=== PATIENT | female | born 1945 | race Caucasian/White ===

== ENCOUNTER 2017-01-22 17:47 | Inpatient (IN) | payer MEDICARE, OTHER ==
[~2017-01-22] VITALS: Ht 175.3 cm; Wt 73.5 kg
[~2017-01-22 17:47] MED LIST: ACET-2116 PO; AMLO-511 PO; ARIP400S IM; ASPI-556 PO; AUD NEB; B CO1CAP4 PO; BISA10SU23 PR; DIVA500T52 PO; DSSL PO; HALO5TAB23 PO; LEVO25TA4 PO; LORA2TAB80 PO; PANT20TA PO; PRAV40 PO; SEVE800PW PO; VITAD1000 PO
[2017-01-22 18:19] LABS: BASOPHILS % (AUTO) 0.6 % (0.0-2.0); EOSINOPHILS % (AUTO) 1.4 % (1.0-6.0); HEMATOCRIT 25.6 % (36-46); HEMOGLOBIN 8.5 g/dL (12.0-16.0); LYMPHOCYTES # (AUTO) 0.6 K/uL (1.0-4.8); LYMPHOCYTES % (AUTO) 6.8 % (22.0-44.0); MEAN CORPUSCULAR HEMOGLOBIN 33.1 pg (26.0-34.0); MEAN CORPUSCULAR HGB CONC 33.2 G/dL (31.0-37.0); MEAN CORPUSCULAR VOLUME 100 fL (80-100); MONOCYTES # (AUTO) 0.6 K/uL (0.1-1.0); MONOCYTES % (AUTO) 6.5 % (2.0-9.0); NEUTROPHILS # (AUTO) 8.1 K/uL (1.8-7.7); NEUTROPHILS % (AUTO) 84.7 % (40.0-70.0); PLATELET COUNT (AUTO) 206 K/uL (150-450); RED BLOOD CELL COUNT(AUTO) 2.57 MIL/uL (4.00-5.20); RED CELL DISTRIBUTION WIDTH 16.6 % (11.5-14.5); WHITE BLOOD COUNT (AUTO) 9.5 K/uL (4.5-11.0)
[2017-01-22] MEDS ORDERED: FERS325 PO (18:21)
[2017-01-22] MEDS ORDERED: CINA30 PO (18:21)
[2017-01-22] MEDS ORDERED: INSU100V SQ (18:21)
[2017-01-22] MEDS ORDERED: QUET300T2 PO (18:21)
[2017-01-22] MEDS ORDERED: METO25 PO (18:21)
[2017-01-22] MEDS ORDERED: FAMO20 PO (18:21)
[2017-01-22] MEDS ORDERED: MIRT30 PO (18:21)
[2017-01-22 18:30] LABS: ANION GAP 17 mmol/L (8-16); CALCIUM, TOTAL 9.8 mg/dL (8.8-10.5); CARBON DIOXIDE 24 mmol/L (22-29); CHLORIDE 96 mmol/L (98-107); CREATININE 8.34 mg/dL (0.60-1.30); GLOMERULAR FILTR. RATE CALC 5 mL/min (>60); POTASSIUM 3.9 mmol/L (3.5-5.1); SODIUM SERUM 137 mmol/L (136-145); UREA NITROGEN, BLOOD 92 mg/dL (7-18)
[2017-01-22 18:47] LABS: GLUCOSE,POINT OF CARE 160 MG/DL (70-110)
[2017-01-22 18:50] LABS: ALANINE AMINOTRANSFERASE 12 U/L (12-78); ALBUMIN 3.1 g/dL (3.4-5.0); ASPARTATE AMINOTRANSFERASE 13 U/L (15-37); BILIRUBIN,TOTAL 0.4 mg/dL (0.1-1.0); THYROID STIMULATING HORMONE 1.05 uIU/mL (0.36-3.74); TOTAL PROTEIN, SERUM 6.9 g/dL (6.4-8.2)
[2017-01-22 19:02] LABS: VALPROIC ACID < 3 mcg/mL (50-100)
[2017-01-22] MEDS ORDERED: LORazepam 2 MG TABLET PO PRN (20:15)
[2017-01-22] MEDS ORDERED: ACETAMINOPHEN 325 MG TABLET PO PRN (20:15)
[2017-01-22] MEDS ORDERED: OxyCODONE HCL/ACETAMINOPHEN 5-325 MG TABLET PO PRN (20:15)
[2017-01-22] MEDS ORDERED: ZOLPIDEM TARTRATE 5 MG TABLET PO PRN (20:15)
[2017-01-22] MEDS ORDERED: DEXTROSE 50%-WATER 25 GM/50 ML SYRINGE IVP PRN (20:15)
[2017-01-22] MEDS ORDERED: ALBUTEROL SULFATE 2.5 MG/0.5 ML NEB SOLUTION NEB PRN (20:15)
[2017-01-22] MEDS ORDERED: PANT40TA25 PO (20:24)
[2017-01-22] MEDS: MIRTAZAPINE 30 MG TABLET PO SCH (21:00)
[2017-01-22] MEDS: QUEtiapine FUMARATE 300 MG TABLET PO SCH (21:00)
[2017-01-22] MEDS: METOPROLOL TARTRATE 25 MG TABLET PO SCH (21:00)
[2017-01-22] MEDS ORDERED: HALOPERIDOL 5 MG TABLET PO ONE (21:00)
[2017-01-22] MEDS ORDERED: LORazepam 2 MG TABLET PO ONE (21:00)
[2017-01-22 22:10] VITALS: BP 126/69
[2017-01-22] MEDS: HEPARIN SODIUM,PORCINE 5,000 UNITS/ML VIAL SQ SCH (23:41)
[2017-01-23 00:42] LABS: GLUCOSE,POINT OF CARE 196 MG/DL (70-110)
[2017-01-23 03:26] VITALS: BP 116/60
[2017-01-23 06:06] LABS: BASOPHILS % (AUTO) 0.3 % (0.0-2.0); EOSINOPHILS % (AUTO) 2.7 % (1.0-6.0); HEMOGLOBIN 7.7 g/dL (12.0-16.0); LYMPHOCYTES # (AUTO) 0.8 K/uL (1.0-4.8); LYMPHOCYTES % (AUTO) 10.2 % (22.0-44.0); MEAN CORPUSCULAR HEMOGLOBIN 33.5 pg (26.0-34.0); MEAN CORPUSCULAR HGB CONC 33.5 G/dL (31.0-37.0); MEAN CORPUSCULAR VOLUME 100 fL (80-100); MONOCYTES # (AUTO) 0.6 K/uL (0.1-1.0); NEUTROPHILS # (AUTO) 6.1 K/uL (1.8-7.7); NEUTROPHILS % (AUTO) 78.8 % (40.0-70.0); PLATELET COUNT (AUTO) 171 K/uL (150-450); RED CELL DISTRIBUTION WIDTH 16.1 % (11.5-14.5); WHITE BLOOD COUNT (AUTO) 7.8 K/uL (4.5-11.0)
[2017-01-23] MEDS: LEVOTHYROXINE SODIUM 25 MCG TABLET PO SCH (06:47)
[2017-01-23 06:53] LABS: HEMOGLOBIN A1C 5.2 % (4.5-6.2)
[2017-01-23 06:56] LABS: GLUCOSE,POINT OF CARE 175 MG/DL (70-110)
[2017-01-23 07:20] LABS: ALBUMIN 2.9 g/dL (3.4-5.0); BILIRUBIN,TOTAL 0.4 mg/dL (0.1-1.0); CALCIUM, TOTAL 10.1 mg/dL (8.8-10.5); CHOL/HDL RATIO 3.1 (3.9-5.7); CREATININE 8.56 mg/dL (0.60-1.30); POTASSIUM 3.9 mmol/L (3.5-5.1); THYROID STIMULATING HORMONE 1.02 uIU/mL (0.36-3.74); TOTAL PROTEIN, SERUM 6.4 g/dL (6.4-8.2)
[2017-01-23] MEDS: CINACALCET HCL 30 MG TABLET PO SCH ×2 (08:00→14:55)
[2017-01-23] MEDS ORDERED: SEVELAMER CARBONATE 800 MG POWDER PACKET PO SCH (08:00)
[2017-01-23] MEDS: FERROUS SULFATE 325 MG EC TABLET PO SCH (08:00)
[2017-01-23 08:07] LABS: VITAMIN B12 LEVEL 506 pg/mL (211-911)
[2017-01-23] MEDS: QUEtiapine FUMARATE 300 MG TABLET PO SCH ×2 (09:00→21:00)
[2017-01-23] MEDS: AmLODIPine BESYLATE 5 MG TABLET PO SCH (09:00)
[2017-01-23] MEDS: PRAVASTATIN SODIUM 40 MG TABLET PO SCH (09:00)
[2017-01-23] MEDS: PANTOPRAZOLE SODIUM 40 MG DR TABLET PO SCH (09:00)
[2017-01-23] MEDS: METOPROLOL TARTRATE 25 MG TABLET PO SCH ×3 (09:00→21:00)
[2017-01-23] MEDS: ASPIRIN 81 MG EC TABLET PO SCH (09:00)
[2017-01-23] MEDS: HEPARIN SODIUM,PORCINE 5,000 UNITS/ML VIAL SQ SCH ×2 (09:18→16:00)
[2017-01-23 10:26] VITALS: BP 121/66
[2017-01-23 12:00] VITALS: BP 108/60
[2017-01-23] MEDS ORDERED: ALBUMIN HUMAN 25%-12.5GM/50ML IV BOTTLE IV ONE (12:00)
[2017-01-23 12:13] LABS: GLUCOSE,POINT OF CARE 167 MG/DL (70-110)
[2017-01-23] MEDS: INSULIN ASPART 100 UNITS/ML SQ PRN (12:31)
[2017-01-23] MEDS ORDERED: SEVELAMER CARBONATE 800 MG TABLET PO SCH (12:35)
[2017-01-23] MEDS: SEVELAMER CARBONATE 800 MG TABLET PO SCH ×2 (12:38→17:53)
[2017-01-23] MEDS ORDERED: EPOETIN ALFA 10,000 UNITS/ML VIAL SQ ONE (13:00)
[2017-01-23] MEDS ORDERED: SODIUM CHLORIDE 0.9% 1,000 ML IV ONE ×2 (15:51)
[2017-01-23 15:56] VITALS: BP 111/65
[2017-01-23 17:42] LABS: GLUCOSE,POINT OF CARE 168 MG/DL (70-110)
[2017-01-23 20:30] VITALS: BP 99/59
[2017-01-23] MEDS: MIRTAZAPINE 30 MG TABLET PO SCH (21:00)
[2017-01-23] MEDS: LORazepam 2 MG/ML VIAL IVP PRN (23:00)
[2017-01-24] MEDS: HEPARIN SODIUM,PORCINE 5,000 UNITS/ML VIAL SQ SCH ×3 (01:15→17:59)
[2017-01-24] MEDS: LORazepam 2 MG/ML VIAL IVP PRN ×3 (03:03→17:54)
[2017-01-24 04:16] VITALS: BP 102/61
[2017-01-24] MEDS ORDERED: MANNITOL 25%-12.5 GM/50 ML VIAL IVP PRN (06:15)
[2017-01-24] MEDS ORDERED: ALBUMIN HUMAN 25%-12.5GM/50ML IV BOTTLE IV PRN (06:15)
[2017-01-24] MEDS ORDERED: SODIUM CHLORIDE 0.9% 1,000 ML IV ONE ×2 (06:19)
[2017-01-24] MEDS: LEVOTHYROXINE SODIUM 25 MCG TABLET PO SCH (06:30)
[2017-01-24 06:37] LABS: GLUCOSE,POINT OF CARE 115 MG/DL (70-110)
[2017-01-24 07:22] VITALS: BP 96/57
[2017-01-24] MEDS: ASPIRIN 81 MG EC TABLET PO SCH (09:08)
[2017-01-24] MEDS: AmLODIPine BESYLATE 5 MG TABLET PO SCH (09:09)
[2017-01-24] MEDS: PANTOPRAZOLE SODIUM 40 MG DR TABLET PO SCH (09:09)
[2017-01-24] MEDS: SEVELAMER CARBONATE 800 MG TABLET PO SCH ×3 (09:09→18:35)
[2017-01-24] MEDS: QUEtiapine FUMARATE 300 MG TABLET PO SCH ×2 (09:10→21:00)
[2017-01-24] MEDS: PRAVASTATIN SODIUM 40 MG TABLET PO SCH (09:10)
[2017-01-24] MEDS: FERROUS SULFATE 325 MG EC TABLET PO SCH (09:10)
[2017-01-24] MEDS: METOPROLOL TARTRATE 25 MG TABLET PO SCH ×3 (09:10→21:00)
[2017-01-24] MEDS: CINACALCET HCL 30 MG TABLET PO SCH (09:12)
[2017-01-24 11:00] VITALS: BP 100/60
[2017-01-24] MEDS ORDERED: HALOPERIDOL LACTATE 5 MG/ML VIAL IM PRN (15:00)
[2017-01-24 16:11] VITALS: BP 131/79
[2017-01-24 17:21] LABS: GLUCOSE,POINT OF CARE 112 MG/DL (70-110)
[2017-01-24] MEDS: MIRTAZAPINE 30 MG TABLET PO SCH (21:00)
[2017-01-24 22:10] VITALS: BP 111/65
[2017-01-25 04:57] VITALS: BP 116/61
[2017-01-25] MEDS: LEVOTHYROXINE SODIUM 25 MCG TABLET PO SCH (05:53)
[2017-01-25] MEDS: INSULIN ASPART 100 UNITS/ML SQ PRN (05:54)
[2017-01-25 05:57] LABS: GLUCOSE COMMENT 1 Received Meds; GLUCOSE,POINT OF CARE 197 MG/DL (70-110)
[2017-01-25 06:19] LABS: BASOPHILS % (AUTO) 0.6 % (0.0-2.0); EOSINOPHILS % (AUTO) 3.8 % (1.0-6.0); HEMATOCRIT 24.5 % (36-46); HEMOGLOBIN 8.3 g/dL (12.0-16.0); LYMPHOCYTES # (AUTO) 0.9 K/uL (1.0-4.8); LYMPHOCYTES % (AUTO) 10.5 % (22.0-44.0); MEAN CORPUSCULAR HEMOGLOBIN 33.7 pg (26.0-34.0); MEAN CORPUSCULAR HGB CONC 33.9 G/dL (31.0-37.0); MEAN CORPUSCULAR VOLUME 100 fL (80-100); MONOCYTES # (AUTO) 0.8 K/uL (0.1-1.0); MONOCYTES % (AUTO) 9.4 % (2.0-9.0); NEUTROPHILS # (AUTO) 6.3 K/uL (1.8-7.7); NEUTROPHILS % (AUTO) 75.7 % (40.0-70.0); PLATELET COUNT (AUTO) 173 K/uL (150-450); RED BLOOD CELL COUNT(AUTO) 2.46 MIL/uL (4.00-5.20); RED CELL DISTRIBUTION WIDTH 15.7 % (11.5-14.5); WHITE BLOOD COUNT (AUTO) 8.3 K/uL (4.5-11.0)
[2017-01-25 07:10] VITALS: BP 121/68
[2017-01-25 07:12] LABS: ALBUMIN 3.3 g/dL (3.4-5.0); BILIRUBIN,TOTAL 0.4 mg/dL (0.1-1.0); CREATININE 3.69 mg/dL (0.60-1.30); POTASSIUM 3.9 mmol/L (3.5-5.1); TOTAL PROTEIN, SERUM 6.9 g/dL (6.4-8.2)
[2017-01-25] MEDS: FERROUS SULFATE 325 MG EC TABLET PO SCH (08:34)
[2017-01-25] MEDS: SEVELAMER CARBONATE 800 MG TABLET PO SCH ×2 (08:34→16:01)
[2017-01-25] MEDS: PANTOPRAZOLE SODIUM 40 MG DR TABLET PO SCH (08:35)
[2017-01-25] MEDS: PRAVASTATIN SODIUM 40 MG TABLET PO SCH (08:35)
[2017-01-25] MEDS: QUEtiapine FUMARATE 300 MG TABLET PO SCH (08:35)
[2017-01-25] MEDS: AmLODIPine BESYLATE 5 MG TABLET PO SCH (08:35)
[2017-01-25] MEDS: ASPIRIN 81 MG EC TABLET PO SCH (08:35)
[2017-01-25] MEDS: HEPARIN SODIUM,PORCINE 5,000 UNITS/ML VIAL SQ SCH ×3 (08:36→16:01)
[2017-01-25] MEDS: METOPROLOL TARTRATE 25 MG TABLET PO SCH ×2 (08:36→16:01)
[2017-01-25 11:13] VITALS: BP 141/76
[2017-01-25 12:32] LABS: GLUCOSE,POINT OF CARE 126 MG/DL (70-110)
[2017-01-25 15:06] VITALS: BP 119/59
[2017-01-25] MEDS ORDERED: MANNITOL 25%-12.5 GM/50 ML VIAL IVP ONE (16:59)
[2017-01-25] MEDS ORDERED: ALBUMIN HUMAN 25%-12.5GM/50ML IV BOTTLE IV ONE (16:59)
== END 2017-01-25 17:00 | DRG 885 ==
LOC: EMS 17:50 → 6N 19:30
PROVIDERS: ADMIT Hospitalist; ATTEND Hospitalist
PROC: 5A1D60Z (ICD-10-PCS; principal; 2017-01-23)
DX: F20.9 Schizophrenia, unspecified (principal); N18.6 End stage renal disease; E44.1 Mild protein-calorie malnutrition; I12.0 Hypertensive chronic kidney disease with stage 5 chronic kidney disease or end stage renal disease; F25.0 Schizoaffective disorder, bipolar type; F03.90 Unspecified dementia, unspecified severity, without behavioral disturbance, psychotic disturbance, mood disturbance, and anxiety; F17.210 Nicotine dependence, cigarettes, uncomplicated; E78.5 Hyperlipidemia, unspecified; E11.65 Type 2 diabetes mellitus with hyperglycemia; E11.22 Type 2 diabetes mellitus with diabetic chronic kidney disease; E03.9 Hypothyroidism, unspecified; D63.1 Anemia in chronic kidney disease; D50.9 Iron deficiency anemia, unspecified; R45.850 Homicidal ideations; E88.09 Other disorders of plasma-protein metabolism, not elsewhere classified; F41.1 Generalized anxiety disorder; F31.9 Bipolar disorder, unspecified; Z88.0 Allergy status to penicillin; Z99.2 Dependence on renal dialysis; Z88.1 Allergy status to other antibiotic agents; Z79.82 Long term (current) use of aspirin; Z79.4 Long term (current) use of insulin; Z79.51 Long term (current) use of inhaled steroids; Z79.899 Other long term (current) drug therapy; Z86.19 Personal history of other infectious and parasitic diseases; Z98.890 Other specified postprocedural states; Z68.23 Body mass index [BMI] 23.0-23.9, adult; Z71.6 Tobacco abuse counseling
CPT/HCPCS: 82306; 82607; 82746; 82962; 83036; 83540; 83550; 83970; 84443; 87081; 87340; 93005; 99285; 99406; G0480; J0885; J1644; J2060; J2150; J7030; P9047

== ENCOUNTER 2017-01-29 21:03 | Inpatient (IN) | payer MEDICARE, OTHER ==
[~2017-01-29] VITALS: Ht 175.3 cm; Wt 73.8 kg
[~2017-01-29 21:03] MED LIST changes: -ARIP400S IM; -B CO1CAP4 PO; -BISA10SU23 PR; +CINA30 PO; -DIVA500T52 PO; -DSSL PO; +FAMO20 PO; +FERS325 PO; -HALO5TAB23 PO; +INSU100V SQ; +METO25 PO; +MIRT30 PO; -PANT20TA PO; +PANT40TA25 PO; +QUET300T2 PO; -VITAD1000 PO
[2017-01-29 21:31] LABS: GLUCOSE,POINT OF CARE 194 MG/DL (70-110)
[2017-01-29] MEDS ORDERED: POLY238P2 PO ×2 (21:47→22:18)
[2017-01-29] MEDS ORDERED: ASCO250T7 PO (22:18)
[2017-01-29] MEDS ORDERED: CINA30 PO (22:18)
[2017-01-29] MEDS ORDERED: SEVE0.8P PO (22:18)
[2017-01-29] MEDS ORDERED: OLAN10TA3 PO (22:18)
[2017-01-29] MEDS ORDERED: ASPI81 PO (22:18)
[2017-01-29] MEDS ORDERED: AMLO-511 PO (22:18)
[2017-01-29] MEDS ORDERED: QUET300T18 PO (22:18)
[2017-01-29] MEDS ORDERED: OLAN5TAB2 PO (22:18)
[2017-01-29] MEDS ORDERED: METO25 PO (22:18)
[2017-01-29] MEDS ORDERED: FAMO20 PO (22:18)
[2017-01-29] MEDS ORDERED: ACET500C4 PO (22:18)
[2017-01-29] MEDS ORDERED: MIRT30 PO (22:18)
[2017-01-29] MEDS ORDERED: QUET25TA34 PO (22:18)
[2017-01-29] MEDS ORDERED: FERS325 PO (22:18)
[2017-01-29] MEDS ORDERED: PANT40TA25 PO (22:18)
[2017-01-29] MEDS ORDERED: LORA2TAB2 PO (22:18)
[2017-01-29] MEDS ORDERED: DOCU250C91 PO (22:18)
[2017-01-29] MEDS ORDERED: PRAV40TA3 PO (22:18)
[2017-01-29] MEDS ORDERED: GLUC1VIA3 IM (22:18)
[2017-01-29] MEDS ORDERED: LEVO25TA9 PO (22:18)
[2017-01-29] MEDS ORDERED: FOLI0.8T2 PO (22:18)
[2017-01-29] MEDS: QUEtiapine FUMARATE 100 MG TABLET PO SCH (22:45)
[2017-01-29] MEDS ORDERED: ACETAMINOPHEN 325 MG TABLET PO PRN (22:45)
[2017-01-29] MEDS ORDERED: ALBUTEROL SULFATE 2.5 MG/0.5 ML NEB SOLUTION NEB PRN (22:45)
[2017-01-29] MEDS ORDERED: BISACODYL 10 MG RECTAL RECTAL SUPPOSITORY PR PRN (22:45)
[2017-01-29] MEDS ORDERED: DEXTROSE 50%-WATER 25 GM/50 ML SYRINGE IVP PRN (23:00)
[2017-01-29] MEDS ORDERED: LORazepam 2 MG/ML VIAL IVP PRN (23:00)
[2017-01-29] MEDS ORDERED: LORazepam 2 MG/ML VIAL IVP ONE (23:45)
[2017-01-29] MEDS ORDERED: HALOPERIDOL LACTATE 5 MG/ML VIAL IVP ONE (23:45)
[2017-01-30 00:30] LABS: BASOPHILS % (AUTO) 0.6 % (0.0-2.0); EOSINOPHILS % (AUTO) 3.7 % (1.0-6.0); HEMATOCRIT 25.4 % (36-46); HEMOGLOBIN 8.6 g/dL (12.0-16.0); LYMPHOCYTES # (AUTO) 0.8 K/uL (1.0-4.8); LYMPHOCYTES % (AUTO) 11.8 % (22.0-44.0); MEAN CORPUSCULAR HEMOGLOBIN 33.3 pg (26.0-34.0); MEAN CORPUSCULAR HGB CONC 33.7 G/dL (31.0-37.0); MEAN CORPUSCULAR VOLUME 99 fL (80-100); MONOCYTES # (AUTO) 0.4 K/uL (0.1-1.0); MONOCYTES % (AUTO) 5.9 % (2.0-9.0); NEUTROPHILS # (AUTO) 5.3 K/uL (1.8-7.7); PLATELET COUNT (AUTO) 172 K/uL (150-450); RED BLOOD CELL COUNT(AUTO) 2.58 MIL/uL (4.00-5.20); RED CELL DISTRIBUTION WIDTH 16.1 % (11.5-14.5); WHITE BLOOD COUNT (AUTO) 6.8 K/uL (4.5-11.0)
[2017-01-30 00:39] LABS: ANION GAP 20 mmol/L (8-16); CALCIUM, TOTAL 10.6 mg/dL (8.8-10.5); CARBON DIOXIDE 18 mmol/L (22-29); CHLORIDE 97 mmol/L (98-107); CREATININE 8.05 mg/dL (0.60-1.30); GLOMERULAR FILTR. RATE CALC 5 mL/min (>60); POTASSIUM 3.6 mmol/L (3.5-5.1); SODIUM SERUM 135 mmol/L (136-145); UREA NITROGEN, BLOOD 80 mg/dL (7-18)
[2017-01-30 00:45] LABS: ALANINE AMINOTRANSFERASE 12 U/L (12-78); ALBUMIN 3.4 g/dL (3.4-5.0); ASPARTATE AMINOTRANSFERASE 8 U/L (15-37); BILIRUBIN,TOTAL 0.4 mg/dL (0.1-1.0)
[2017-01-30 01:30] VITALS: BP 122/62
[2017-01-30] MEDS ORDERED: PNEUMOCOCCAL VACCINE POLYVALENT 0.5 ML VIAL [PPSV23] IM ONE (02:00)
[2017-01-30] MEDS: INSULIN ASPART 100 UNITS/ML SQ PRN (05:40)
[2017-01-30 05:56] LABS: GLUCOSE COMMENT 1 Received Meds; GLUCOSE,POINT OF CARE 162 MG/DL (70-110)
[2017-01-30 07:40] VITALS: BP 109/54
[2017-01-30] MEDS: VITAMIN B COMP/VIT C/FOLIC ACID CAPSULE PO SCH (08:44)
[2017-01-30] MEDS: ASPIRIN 81 MG CHEWABLE TABLET PO SCH (08:44)
[2017-01-30] MEDS: HEPARIN SODIUM,PORCINE 5,000 UNITS/ML VIAL SQ SCH ×2 (08:45→19:56)
[2017-01-30] MEDS: QUEtiapine FUMARATE 100 MG TABLET PO SCH ×2 (08:45→19:56)
[2017-01-30] MEDS: PANTOPRAZOLE SODIUM 40 MG DR TABLET PO SCH (08:45)
[2017-01-30] MEDS: DOCUSATE SODIUM 100 MG CAPSULE PO SCH ×2 (09:00→19:56)
[2017-01-30 12:22] VITALS: BP 123/64
[2017-01-30] MEDS ORDERED: LORazepam 2 MG/ML VIAL IM ONE ×2 (13:45→19:15)
[2017-01-30] MEDS ORDERED: ALBUMIN HUMAN 25%-12.5GM/50ML IV BOTTLE IV PRN (16:00)
[2017-01-30] MEDS ORDERED: MANNITOL 25%-12.5 GM/50 ML VIAL IVP PRN (16:00)
[2017-01-30] MEDS ORDERED: LIDOCAINE HCL/PF 1% 2 ML VIAL ID PRN (16:00)
[2017-01-30] MEDS ORDERED: DiphenhydrAMINE HCL 50 MG/ML VIAL IM ONE (19:15)
[2017-01-30] MEDS ORDERED: HALOPERIDOL LACTATE 5 MG/ML VIAL IM ONE (19:15)
[2017-01-30 20:27] VITALS: BP 126/68
[2017-01-30 23:15] VITALS: BP 116/66
[2017-01-31] MEDS: INSULIN ASPART 100 UNITS/ML SQ PRN ×2 (06:07→11:51)
[2017-01-31 07:08] LABS: CALCIUM, TOTAL 10.5 mg/dL (8.8-10.5); CREATININE 5.39 mg/dL (0.60-1.30); POTASSIUM 3.8 mmol/L (3.5-5.1)
[2017-01-31] MEDS: VITAMIN B COMP/VIT C/FOLIC ACID CAPSULE PO SCH (08:22)
[2017-01-31] MEDS: DOCUSATE SODIUM 100 MG CAPSULE PO SCH (08:22)
[2017-01-31] MEDS: ASPIRIN 81 MG CHEWABLE TABLET PO SCH (08:22)
[2017-01-31] MEDS: PANTOPRAZOLE SODIUM 40 MG DR TABLET PO SCH (08:23)
[2017-01-31] MEDS: QUEtiapine FUMARATE 100 MG TABLET PO SCH (08:23)
[2017-01-31] MEDS: HEPARIN SODIUM,PORCINE 5,000 UNITS/ML VIAL SQ SCH (08:23)
[2017-01-31] MEDS ORDERED: SODIUM CHLORIDE 0.9% 2,000 ML IV ONE (08:33)
[2017-01-31 08:49] VITALS: BP 100/49
[2017-01-31] MEDS ORDERED: ALBUMIN HUMAN 25%-12.5GM/50ML IV BOTTLE IV PRN (09:15)
[2017-01-31] MEDS ORDERED: MANNITOL 25%-12.5 GM/50 ML VIAL IVP PRN (09:15)
[2017-01-31 11:30] VITALS: BP 121/83
[2017-01-31 11:47] LABS: GLUCOSE COMMENT 1 Received Meds; GLUCOSE,POINT OF CARE 171 MG/DL (70-110)
[2017-01-31 11:47] LABS: GLUCOSE COMMENT 1 Received Meds; GLUCOSE,POINT OF CARE 159 MG/DL (70-110)
[2017-01-31] MEDS ORDERED: MANNITOL 25%-12.5 GM/50 ML VIAL IVP ONE (14:59)
[2017-01-31] MEDS ORDERED: QUEtiapine FUMARATE 300 MG TABLET PO SCH (21:00)
[2017-01-31] MEDS ORDERED: MIRTAZAPINE 30 MG TABLET PO SCH (21:00)
== END 2017-01-31 15:00 | DRG 947 ==
LOC: EMS 21:06 → 6N 22:55
PROVIDERS: ADMIT Internal Medicine; ATTEND Internal Medicine
PROC: 5A1D60Z (ICD-10-PCS; principal; 2017-01-30)
DX: R41.82 Altered mental status, unspecified (principal); N18.6 End stage renal disease; I12.0 Hypertensive chronic kidney disease with stage 5 chronic kidney disease or end stage renal disease; N25.81 Secondary hyperparathyroidism of renal origin; R62.7 Adult failure to thrive; J44.9 Chronic obstructive pulmonary disease, unspecified; F25.9 Schizoaffective disorder, unspecified; D63.1 Anemia in chronic kidney disease; E11.22 Type 2 diabetes mellitus with diabetic chronic kidney disease; E11.65 Type 2 diabetes mellitus with hyperglycemia; F41.9 Anxiety disorder, unspecified; F03.90 Unspecified dementia, unspecified severity, without behavioral disturbance, psychotic disturbance, mood disturbance, and anxiety; F17.210 Nicotine dependence, cigarettes, uncomplicated; F31.9 Bipolar disorder, unspecified; F41.1 Generalized anxiety disorder; Z53.29 Procedure and treatment not carried out because of patient's decision for other reasons; R45.1 Restlessness and agitation; E78.5 Hyperlipidemia, unspecified; E03.9 Hypothyroidism, unspecified; Z28.21 Immunization not carried out because of patient refusal; Z79.899 Other long term (current) drug therapy; Z79.82 Long term (current) use of aspirin; Z88.1 Allergy status to other antibiotic agents; Z88.0 Allergy status to penicillin; Z99.2 Dependence on renal dialysis; Z91.19 Patient's noncompliance with other medical treatment and regimen; Z79.4 Long term (current) use of insulin; Z78.1 Physical restraint status
CPT/HCPCS: 82962; 87081; 87340; 93005; 96374; 96375; 99285; G0480; J1200; J1630; J1644; J2060; J2150; J7030

== ENCOUNTER 2017-02-03 11:49 | Emergency (ER) | payer MEDICARE, OTHER ==
[~2017-02-03] VITALS: Ht 170.2 cm; Wt 74.5 kg
[~2017-02-03 11:49] MED LIST changes: -ACET-2116 PO; +ACET500C4 PO; -ASPI-556 PO; +ASPI81 PO; -AUD NEB; +DOCU250C91 PO; +FOLI0.8T2 PO; -INSU100V SQ; -LEVO25TA4 PO; +LEVO25TA9 PO; +LORA2TAB2 PO; -LORA2TAB80 PO; -METO25 PO; -MIRT30 PO; +OLAN10TA3 PO; +OLAN5TAB2 PO; -PANT40TA25 PO; -PRAV40 PO; +PRAV40TA3 PO; +QUET25TA34 PO; +SEVE0.8P PO; -SEVE800PW PO
[2017-02-03 14:08] LABS: BASOPHILS # (AUTO) 0.03 K/uL (0.00-0.20); BASOPHILS % (AUTO) 0.4 % (0.0-2.0); EOSINOPHILS # (AUTO) 0.48 K/uL (0.00-0.70); EOSINOPHILS % (AUTO) 5.61 % (1.0-6.0); HEMATOCRIT 24.7 % (36-46); HEMOGLOBIN 8.5 g/dL (12.0-16.0); LYMPHOCYTES # (AUTO) 0.7 K/uL (1.0-4.8); LYMPHOCYTES % (AUTO) 8.2 % (22.0-44.0); MEAN CORPUSCULAR HEMOGLOBIN 33.6 pg (26.0-34.0); MEAN CORPUSCULAR HGB CONC 34.4 G/dL (31.0-37.0); MEAN CORPUSCULAR VOLUME 98 fL (80-100); MONOCYTES # (AUTO) 0.6 K/uL (0.1-1.0); MONOCYTES % (AUTO) 6.7 % (2.0-9.0); NEUTROPHILS # (AUTO) 6.8 K/uL (1.8-7.7); NEUTROPHILS % (AUTO) 79.2 % (40.0-70.0); PLATELET COUNT (AUTO) 195 K/uL (150-450); RED BLOOD CELL COUNT(AUTO) 2.53 MIL/uL (4.00-5.20); RED CELL DISTRIBUTION WIDTH 15.6 % (11.5-14.5); WHITE BLOOD COUNT (AUTO) 8.6 K/uL (4.5-11.0)
[2017-02-03 14:17] LABS: ANION GAP 17 mmol/L (8-16); CALCIUM, TOTAL 10.4 mg/dL (8.8-10.5); CARBON DIOXIDE 21 mmol/L (22-29); CHLORIDE 98 mmol/L (98-107); CREATININE 6.61 mg/dL (0.60-1.30); GLOMERULAR FILTR. RATE CALC 6 mL/min (>60); POTASSIUM 4.3 mmol/L (3.5-5.1); SODIUM SERUM 136 mmol/L (136-145); UREA NITROGEN, BLOOD 75 mg/dL (7-18)
[2017-02-03 14:23] LABS: ALANINE AMINOTRANSFERASE 16 U/L (12-78); ALBUMIN 3.3 g/dL (3.4-5.0); ASPARTATE AMINOTRANSFERASE 10 U/L (15-37); BILIRUBIN,TOTAL 0.5 mg/dL (0.1-1.0); TOTAL PROTEIN, SERUM 7.2 g/dL (6.4-8.2)
[2017-02-03] MEDS: OLANZapine 5 MG TABLET PO ONE (17:06)
[2017-02-03] MEDS: LORazepam 2 MG/ML VIAL IM ONE (17:06)
[2017-02-03 17:56] VITALS: BP 122/52
== END 2017-02-03 18:24 | disposition home or self-care (01) ==
LOC: EMS 11:51
DX: E11.22 Type 2 diabetes mellitus with diabetic chronic kidney disease (principal); I12.0 Hypertensive chronic kidney disease with stage 5 chronic kidney disease or end stage renal disease; N18.6 End stage renal disease; J44.9 Chronic obstructive pulmonary disease, unspecified; Z99.2 Dependence on renal dialysis; Z88.0 Allergy status to penicillin; Z79.82 Long term (current) use of aspirin; Z88.1 Allergy status to other antibiotic agents
CPT/HCPCS: 36415; 80053; 85025; 96372; 99284; G0480; J2060

== ENCOUNTER 2017-02-17 13:14 | Inpatient (IN) | payer MEDICARE, OTHER ==
[~2017-02-17] VITALS: Ht 175.3 cm; Wt 77.7 kg
[~2017-02-17 13:14] MED LIST changes: +FERR-89 PO; -FERS325 PO; +LORA2TAB2 IM; -LORA2TAB2 PO
[2017-02-17 13:40] LABS: BASOPHILS % (AUTO) 0.3 % (0.0-2.0); EOSINOPHILS % (AUTO) 5.9 % (1.0-6.0); HEMOGLOBIN 7.9 g/dL (12.0-16.0); LYMPHOCYTES # (AUTO) 0.6 K/uL (1.0-4.8); LYMPHOCYTES % (AUTO) 8.3 % (22.0-44.0); MEAN CORPUSCULAR HEMOGLOBIN 32.7 pg (26.0-34.0); MEAN CORPUSCULAR VOLUME 99 fL (80-100); MONOCYTES # (AUTO) 0.7 K/uL (0.1-1.0); MONOCYTES % (AUTO) 8.7 % (2.0-9.0); NEUTROPHILS % (AUTO) 76.8 % (40.0-70.0); PLATELET COUNT (AUTO) 169 K/uL (150-450); RED BLOOD CELL COUNT(AUTO) 2.43 MIL/uL (4.00-5.20); RED CELL DISTRIBUTION WIDTH 14.4 % (11.5-14.5); WHITE BLOOD COUNT (AUTO) 7.8 K/uL (4.5-11.0)
[2017-02-17 13:50] LABS: ANION GAP 19 mmol/L (8-16); CALCIUM, TOTAL 9.8 mg/dL (8.8-10.5); CARBON DIOXIDE 20 mmol/L (22-29); CHLORIDE 98 mmol/L (98-107); CREATININE 8.09 mg/dL (0.60-1.30); GLOMERULAR FILTR. RATE CALC 5 mL/min (>60); SODIUM SERUM 137 mmol/L (136-145); UREA NITROGEN, BLOOD 97 mg/dL (7-18)
[2017-02-17 13:55] LABS: ALANINE AMINOTRANSFERASE 13 U/L (12-78); ALBUMIN 2.9 g/dL (3.4-5.0); ASPARTATE AMINOTRANSFERASE 12 U/L (15-37); BILIRUBIN,TOTAL 0.3 mg/dL (0.1-1.0); TOTAL PROTEIN, SERUM 6.7 g/dL (6.4-8.2)
[2017-02-17] MEDS ORDERED: LORazepam 2 MG TABLET PO ONE (14:45)
[2017-02-17 15:12] LABS: GLUCOSE,POINT OF CARE 191 MG/DL (70-110)
[2017-02-17 18:08] LABS: GLUCOSE,POINT OF CARE 163 MG/DL (70-110)
[2017-02-17 21:02] VITALS: BP 151/75
[2017-02-17] MEDS ORDERED: LORazepam 2 MG/ML VIAL IM ONE (23:00)
[2017-02-17] MEDS ORDERED: OLANZapine 5 MG TABLET PO PRN (23:00)
[2017-02-17] MEDS ORDERED: BISACODYL 10 MG RECTAL RECTAL SUPPOSITORY PR PRN (23:00)
[2017-02-17] MEDS ORDERED: ONDANSETRON HCL 4 MG/2 ML VIAL IVP PRN (23:00)
[2017-02-17] MEDS ORDERED: MAGNESIUM HYDROXIDE SUSPENSION 30 ML UDCUP PO PRN (23:00)
[2017-02-17] MEDS ORDERED: ALBUTEROL SULFATE 2.5 MG/0.5 ML NEB SOLUTION NEB PRN (23:00)
[2017-02-17] MEDS ORDERED: IPRATROPIUM BROMIDE 0.5 MG/2.5 ML NEB SOLUTION NEB PRN (23:00)
[2017-02-17] MEDS ORDERED: QUEtiapine FUMARATE 25 MG TABLET PO PRN (23:00)
[2017-02-17] MEDS ORDERED: ACETAMINOPHEN 325 MG TABLET PO PRN (23:00)
[2017-02-17] MEDS ORDERED: MORPHINE SULFATE 4 MG/ML SYRINGE IVP PRN (23:00)
[2017-02-17] MEDS ORDERED: ZOLPIDEM TARTRATE 5 MG TABLET PO PRN (23:00)
[2017-02-17] MEDS ORDERED: HYDROCODONE/ACETAMINOPHEN 5-325 MG TABLET PO PRN (23:00)
[2017-02-18] MEDS ORDERED: MORPHINE SULFATE 2 MG/ML SYRINGE IVP PRN (00:21)
[2017-02-18 01:40] VITALS: BP 145/77
[2017-02-18 05:40] VITALS: BP 125/63
[2017-02-18 06:06] LABS: BASOPHILS # (AUTO) 0.02 K/uL (0.00-0.20); BASOPHILS % (AUTO) 0.3 % (0.0-2.0); EOSINOPHILS # (AUTO) 0.41 K/uL (0.00-0.70); EOSINOPHILS % (AUTO) 5.49 % (1.0-6.0); HEMATOCRIT 22.1 % (36-46); HEMOGLOBIN 7.4 g/dL (12.0-16.0); LYMPHOCYTES # (AUTO) 0.7 K/uL (1.0-4.8); LYMPHOCYTES % (AUTO) 8.8 % (22.0-44.0); MEAN CORPUSCULAR HEMOGLOBIN 33.4 pg (26.0-34.0); MEAN CORPUSCULAR HGB CONC 33.4 G/dL (31.0-37.0); MEAN CORPUSCULAR VOLUME 100 fL (80-100); MONOCYTES # (AUTO) 0.7 K/uL (0.1-1.0); MONOCYTES % (AUTO) 9.3 % (2.0-9.0); NEUTROPHILS # (AUTO) 5.6 K/uL (1.8-7.7); NEUTROPHILS % (AUTO) 76.1 % (40.0-70.0); PLATELET COUNT (AUTO) 150 K/uL (150-450); RED BLOOD CELL COUNT(AUTO) 2.21 MIL/uL (4.00-5.20); RED CELL DISTRIBUTION WIDTH 15.2 % (11.5-14.5); WHITE BLOOD COUNT (AUTO) 7.4 K/uL (4.5-11.0)
[2017-02-18] MEDS ORDERED: LEVOTHYROXINE SODIUM 25 MCG TABLET PO SCH (06:30)
[2017-02-18 06:56] LABS: ALBUMIN 2.7 g/dL (3.4-5.0); BILIRUBIN,TOTAL 0.4 mg/dL (0.1-1.0); CALCIUM, TOTAL 9.8 mg/dL (8.8-10.5); CREATININE 8.31 mg/dL (0.60-1.30); POTASSIUM 5.1 mmol/L (3.5-5.1); TOTAL PROTEIN, SERUM 6.4 g/dL (6.4-8.2)
[2017-02-18 07:30] VITALS: BP 132/70
[2017-02-18] MEDS ORDERED: CINACALCET HCL 30 MG TABLET PO SCH (08:00)
[2017-02-18] MEDS ORDERED: FERROUS SULFATE 325 MG EC TABLET PO SCH (08:00)
[2017-02-18] MEDS: HEPARIN SODIUM,PORCINE 5,000 UNITS/ML VIAL SQ SCH ×3 (08:00→16:00)
[2017-02-18] MEDS: SEVELAMER CARBONATE 800 MG POWDER PACKET PO SCH ×2 (08:00→12:00)
[2017-02-18] MEDS ORDERED: AmLODIPine BESYLATE 5 MG TABLET PO SCH (09:00)
[2017-02-18] MEDS ORDERED: OLANZapine 10 MG TABLET PO SCH (09:00)
[2017-02-18] MEDS ORDERED: ASPIRIN 81 MG CHEWABLE TABLET PO SCH (09:00)
[2017-02-18] MEDS ORDERED: QUEtiapine FUMARATE 300 MG TABLET PO SCH (09:00)
[2017-02-18] MEDS ORDERED: PANTOPRAZOLE SODIUM 40 MG/VIAL IVP SCH (09:00)
[2017-02-18] MEDS ORDERED: LORazepam 2 MG TABLET PO SCH (09:00)
[2017-02-18] MEDS ORDERED: DOCUSATE SODIUM 100 MG CAPSULE PO SCH (09:00)
[2017-02-18] MEDS ORDERED: SODIUM CHLORIDE 0.9% 2,000 ML IV ONE (10:30)
[2017-02-18 11:31] VITALS: BP 118/79
[2017-02-18 15:58] LABS: ALBUMIN 2.9 g/dL (3.4-5.0); BILIRUBIN,TOTAL 0.3 mg/dL (0.1-1.0); CALCIUM, TOTAL 10.2 mg/dL (8.8-10.5); CREATININE 3.79 mg/dL (0.60-1.30); POTASSIUM 3.6 mmol/L (3.5-5.1); TOTAL PROTEIN, SERUM 6.2 g/dL (6.4-8.2)
[2017-02-18] MEDS ORDERED: ACET-2247 PO (17:46)
[2017-02-18] MEDS ORDERED: ZOLP5 PO (17:47)
[2017-02-18] MEDS ORDERED: PRAVASTATIN SODIUM 40 MG TABLET PO SCH (20:00)
[2017-02-18] MEDS ORDERED: FAMOTIDINE 20 MG TABLET PO SCH (21:00)
== END 2017-02-18 18:15 | DRG 682 ==
LOC: EMS 13:30 → EEVIPCON 13:30 → 6N 17:50
PROVIDERS: ADMIT Hospitalist; ATTEND Hospitalist
PROC: 5A1D00Z (ICD-10-PCS; principal; 2017-02-17)
DX: I12.0 Hypertensive chronic kidney disease with stage 5 chronic kidney disease or end stage renal disease (principal); N18.6 End stage renal disease; F20.9 Schizophrenia, unspecified; F31.9 Bipolar disorder, unspecified; E11.22 Type 2 diabetes mellitus with diabetic chronic kidney disease; F03.90 Unspecified dementia, unspecified severity, without behavioral disturbance, psychotic disturbance, mood disturbance, and anxiety; F41.9 Anxiety disorder, unspecified; F41.1 Generalized anxiety disorder; F17.210 Nicotine dependence, cigarettes, uncomplicated; Z79.82 Long term (current) use of aspirin; Z79.891 Long term (current) use of opiate analgesic; Z79.51 Long term (current) use of inhaled steroids; Z79.899 Other long term (current) drug therapy; Z99.2 Dependence on renal dialysis; Z79.84 Long term (current) use of oral hypoglycemic drugs
CPT/HCPCS: 82962; 86706; 87081; 87340; 90935; 99285; C9113; G0480; J1644; J2060; J7030

== ENCOUNTER 2017-03-15 12:13 | Emergency (ER) | payer MEDICARE, OTHER ==
[~2017-03-15] VITALS: Ht 175.3 cm; Wt 77.0 kg
[~2017-03-15 12:13] MED LIST changes: +ACET-2247 PO; -LORA2TAB2 IM; +LORA2TAB2 PO; +ZOLP5 PO
[2017-03-15 12:27] LABS: GLUCOSE,POINT OF CARE 241 MG/DL (70-110)
[2017-03-15 15:00] VITALS: BP 141/73
== END 2017-03-15 15:07 | disposition home or self-care (01) ==
LOC: EMS 12:16
DX: S83.92XA Sprain of unspecified site of left knee, initial encounter (principal); E11.22 Type 2 diabetes mellitus with diabetic chronic kidney disease; I12.0 Hypertensive chronic kidney disease with stage 5 chronic kidney disease or end stage renal disease; N18.6 End stage renal disease; J44.9 Chronic obstructive pulmonary disease, unspecified; Z99.2 Dependence on renal dialysis; Z88.0 Allergy status to penicillin; Z79.82 Long term (current) use of aspirin; Z88.1 Allergy status to other antibiotic agents; W06.XXXA Fall from bed, initial encounter; Y93.89 Activity, other specified; Y92.89 Other specified places as the place of occurrence of the external cause; Y99.8 Other external cause status
CPT/HCPCS: 73552; 82962; 99284

== ENCOUNTER 2017-03-17 14:02 | Emergency (ER) | payer MEDICARE, OTHER ==
[~2017-03-17] VITALS: Ht 175.3 cm; Wt 84.0 kg
[~2017-03-17 14:02] MED LIST changes: -ACET500C4 PO
[2017-03-17 14:22] LABS: GLUCOSE,POINT OF CARE 230 MG/DL (70-110)
[2017-03-17] MEDS ORDERED: METO25 PO (14:27)
[2017-03-17] MEDS ORDERED: CINA30 PO (14:27)
[2017-03-17] MEDS ORDERED: FOLI0.8T2 PO (14:27)
[2017-03-17] MEDS ORDERED: FE PR (14:27)
[2017-03-17 14:35] LABS: BASOPHILS % (AUTO) 0.2 % (0.0-2.0); EOSINOPHILS % (AUTO) 1.9 % (1.0-6.0); HEMATOCRIT 25.4 % (36-46); HEMOGLOBIN 8.2 g/dL (12.0-16.0); LYMPHOCYTES # (AUTO) 0.4 K/uL (1.0-4.8); LYMPHOCYTES % (AUTO) 6.5 % (22.0-44.0); MEAN CORPUSCULAR HEMOGLOBIN 32.5 pg (26.0-34.0); MEAN CORPUSCULAR HGB CONC 32.4 G/dL (31.0-37.0); MEAN CORPUSCULAR VOLUME 100 fL (80-100); MONOCYTES # (AUTO) 0.7 K/uL (0.1-1.0); MONOCYTES % (AUTO) 10.6 % (2.0-9.0); NEUTROPHILS # (AUTO) 5.1 K/uL (1.8-7.7); NEUTROPHILS % (AUTO) 80.8 % (40.0-70.0); PLATELET COUNT (AUTO) 226 K/uL (150-450); RED BLOOD CELL COUNT(AUTO) 2.54 MIL/uL (4.00-5.20); RED CELL DISTRIBUTION WIDTH 17.6 % (11.5-14.5); WHITE BLOOD COUNT (AUTO) 6.3 K/uL (4.5-11.0)
[2017-03-17 14:44] LABS: CALCIUM, TOTAL 9.2 mg/dL (8.8-10.5); CREATININE 4.61 mg/dL (0.60-1.30)
[2017-03-17 14:50] LABS: ALBUMIN 2.8 g/dL (3.4-5.0); BILIRUBIN,TOTAL 0.4 mg/dL (0.1-1.0); TOTAL PROTEIN, SERUM 6.2 g/dL (6.4-8.2)
[2017-03-17 14:52] LABS: RBC MORPHOLOGY COMMENT ABNORMAL RBC MORPH
[2017-03-17 16:54] VITALS: BP 135/62
== END 2017-03-17 17:27 | disposition home or self-care (01) ==
LOC: EMS 14:04
DX: M54.9 Dorsalgia, unspecified (principal); I12.0 Hypertensive chronic kidney disease with stage 5 chronic kidney disease or end stage renal disease; E11.22 Type 2 diabetes mellitus with diabetic chronic kidney disease; N18.6 End stage renal disease; Z99.2 Dependence on renal dialysis; F31.9 Bipolar disorder, unspecified; Z88.0 Allergy status to penicillin; Z88.1 Allergy status to other antibiotic agents
CPT/HCPCS: 82962; 93005; 99285

== ENCOUNTER 2017-03-19 12:17 | Inpatient (IN) | payer MEDICARE, OTHER ==
[~2017-03-19] VITALS: Ht 172.7 cm; Wt 83.0 kg
[~2017-03-19 12:17] MED LIST changes: +FE PR; +LORA2TAB2 IM; -LORA2TAB2 PO; +METO25 PO
[2017-03-19 13:26] LABS: GLUCOSE,POINT OF CARE 203 MG/DL (70-110)
[2017-03-19] MEDS ORDERED: HALOPERIDOL LACTATE 5 MG/ML VIAL IM ONE (15:45)
[2017-03-19] MEDS ORDERED: LORazepam 2 MG/ML VIAL IM ONE ×2 (15:45→19:30)
[2017-03-19] MEDS ORDERED: DiphenhydrAMINE HCL 50 MG/ML VIAL IM ONE (15:45)
[2017-03-19] MEDS ORDERED: MORPHINE SULFATE 2 MG/ML SYRINGE IVP PRN (17:15)
[2017-03-19] MEDS ORDERED: ONDANSETRON HCL 4 MG/2 ML VIAL IVP PRN (17:15)
[2017-03-19] MEDS ORDERED: BISACODYL 10 MG RECTAL RECTAL SUPPOSITORY PR PRN (17:15)
[2017-03-19] MEDS ORDERED: MAGNESIUM HYDROXIDE SUSPENSION 30 ML UDCUP PO PRN (17:15)
[2017-03-19] MEDS ORDERED: SEVELAMER CARBONATE 800 MG POWDER PACKET PO SCH (17:30)
[2017-03-19 17:45] LABS: BASOPHILS % (AUTO) 0.1 % (0.0-2.0); EOSINOPHILS % (AUTO) 1.7 % (1.0-6.0); HEMATOCRIT 29.3 % (36-46); HEMOGLOBIN 9.5 g/dL (12.0-16.0); LYMPHOCYTES # (AUTO) 0.6 K/uL (1.0-4.8); MEAN CORPUSCULAR HEMOGLOBIN 32.5 pg (26.0-34.0); MEAN CORPUSCULAR HGB CONC 32.5 G/dL (31.0-37.0); MEAN CORPUSCULAR VOLUME 100 fL (80-100); MONOCYTES # (AUTO) 0.5 K/uL (0.1-1.0); MONOCYTES % (AUTO) 7.2 % (2.0-9.0); NEUTROPHILS # (AUTO) 5.9 K/uL (1.8-7.7); PLATELET COUNT (AUTO) 227 K/uL (150-450); RED BLOOD CELL COUNT(AUTO) 2.93 MIL/uL (4.00-5.20); RED CELL DISTRIBUTION WIDTH 16.4 % (11.5-14.5); WHITE BLOOD COUNT (AUTO) 7.1 K/uL (4.5-11.0)
[2017-03-19 17:54] LABS: ANION GAP 16 mmol/L (8-16); CARBON DIOXIDE 20 mmol/L (22-29); CHLORIDE 93 mmol/L (98-107); CREATININE 6.68 mg/dL (0.60-1.30); GLOMERULAR FILTR. RATE CALC 6 mL/min (>60); POTASSIUM 5.4 mmol/L (3.5-5.1); SODIUM SERUM 129 mmol/L (136-145); UREA NITROGEN, BLOOD 61 mg/dL (7-18)
[2017-03-19 18:03] LABS: ALANINE AMINOTRANSFERASE 21 U/L (12-78); ALBUMIN 3.2 g/dL (3.4-5.0); ASPARTATE AMINOTRANSFERASE 21 U/L (15-37); BILIRUBIN,TOTAL 0.4 mg/dL (0.1-1.0); CREATINE KINASE, TOTAL 74 U/L (26-192); TOTAL PROTEIN, SERUM 6.9 g/dL (6.4-8.2)
[2017-03-19 18:07] LABS: TROPONIN I 0.05 ng/mL (0.00-0.05)
[2017-03-19 18:15] LABS: AMMONIA < 10 umol/L (11-32)
[2017-03-19] MEDS: METOPROLOL TARTRATE 25 MG TABLET PO SCH ×2 (18:18→23:46)
[2017-03-19 18:23] LABS: APPEARANCE,URINE CLEAR (CLEAR); GLUCOSE, URINE (UA) 250 mg/dL (NEGATIVE); KETONES,URINE NEGATIVE (NEGATIVE); LEUKOCYTE ESTERASE ,URINE NEGATIVE (NEGATIVE); OCCULT BLOOD,URINE TRACE (NEGATIVE); PH,URINE 7.5 (5.0-8.0); PROTEIN,URINE SEE CONFIRM (NEGATIVE)
[2017-03-19 18:31] LABS: ADD UA MICROSCOPIC YES
[2017-03-19 18:37] LABS: SULFOSALICYLIC ACID,URINE 2+ (Negative)
[2017-03-19 18:38] LABS: SQUAMOUS EPITHELIAL CELL,UR Few /LPF (None Seen); WBC,URINE 0-2 /HPF (0-5)
[2017-03-19] MEDS ORDERED: CALCIUM GLUCONATE 100 MG/ML 10 ML IVP ONE (18:45)
[2017-03-19 21:40] VITALS: BP 136/69
[2017-03-19] MEDS: PRAVASTATIN SODIUM 40 MG TABLET PO SCH (23:43)
[2017-03-19] MEDS: DOCUSATE SODIUM 100 MG CAPSULE PO SCH (23:43)
[2017-03-19] MEDS: QUEtiapine FUMARATE 300 MG TABLET PO SCH (23:43)
[2017-03-19] MEDS: HEPARIN SODIUM,PORCINE 5,000 UNITS/ML VIAL SQ SCH (23:46)
[2017-03-19 23:57] VITALS: BP 128/67
[2017-03-20 05:17] VITALS: BP 118/65
[2017-03-20] MEDS ORDERED: PNEUMOCOCCAL VACCINE POLYVALENT 0.5 ML VIAL [PPSV23] IM ONE (05:45)
[2017-03-20] MEDS: LEVOTHYROXINE SODIUM 25 MCG TABLET PO SCH (07:01)
[2017-03-20] MEDS: METOPROLOL TARTRATE 25 MG TABLET PO SCH ×4 (07:02→23:46)
[2017-03-20 07:51] VITALS: BP 113/71
[2017-03-20] MEDS ORDERED: CINACALCET HCL 30 MG TABLET PO SCH (08:00)
[2017-03-20] MEDS: HYDROCODONE/ACETAMINOPHEN 5-325 MG TABLET PO PRN (09:19)
[2017-03-20] MEDS: FERROUS SULFATE 325 MG EC TABLET PO SCH (09:19)
[2017-03-20] MEDS: AmLODIPine BESYLATE 5 MG TABLET PO SCH (09:19)
[2017-03-20] MEDS: VITAMIN B COMP/VIT C/FOLIC ACID CAPSULE PO SCH (09:19)
[2017-03-20] MEDS: ASPIRIN 81 MG CHEWABLE TABLET PO SCH (09:19)
[2017-03-20] MEDS: PANTOPRAZOLE SODIUM 40 MG DR TABLET PO SCH (09:19)
[2017-03-20] MEDS: HEPARIN SODIUM,PORCINE 5,000 UNITS/ML VIAL SQ SCH ×3 (09:19→23:46)
[2017-03-20] MEDS: DOCUSATE SODIUM 100 MG CAPSULE PO SCH ×2 (09:19→21:13)
[2017-03-20] MEDS: SEVELAMER CARBONATE 800 MG TABLET PO SCH ×3 (09:20→17:55)
[2017-03-20] MEDS: QUEtiapine FUMARATE 300 MG TABLET PO SCH ×2 (09:20→21:13)
[2017-03-20] MEDS: CINACALCET HCL 30 MG TABLET PO SCH (09:21)
[2017-03-20 11:29] VITALS: BP 128/75
[2017-03-20] MEDS ORDERED: DiphenhydrAMINE HCL 50 MG/ML VIAL IVP ONE (14:41)
[2017-03-20] MEDS ORDERED: ACETAMINOPHEN 325 MG TABLET PO ONE (14:41)
[2017-03-20 15:45] VITALS: BP 125/74
[2017-03-20] MEDS ORDERED: SODIUM CHLORIDE 0.9% 1,000 ML IV ONE ×2 (15:55)
[2017-03-20] MEDS ORDERED: MANNITOL 25%-12.5 GM/50 ML VIAL IVP PRN (16:45)
[2017-03-20] MEDS ORDERED: ALBUMIN HUMAN 25%-12.5GM/50ML IV BOTTLE IV PRN (16:45)
[2017-03-20] MEDS ORDERED: DiphenhydrAMINE HCL 50 MG/ML VIAL IVP PRN (16:45)
[2017-03-20] MEDS: PRAVASTATIN SODIUM 40 MG TABLET PO SCH (21:13)
[2017-03-20 21:19] VITALS: BP 103/58
[2017-03-20 23:35] VITALS: BP 117/53
[2017-03-20] MEDS: ACETAMINOPHEN 325 MG TABLET PO PRN (23:59)
[2017-03-21] MEDS ORDERED: 0.9% SODIUM CHLORIDE 10 ML SYRINGE IVP PRN (04:30)
[2017-03-21 05:25] VITALS: BP 110/63
[2017-03-21] MEDS: METOPROLOL TARTRATE 25 MG TABLET PO SCH ×4 (06:00→23:51)
[2017-03-21] MEDS: ACETAMINOPHEN 325 MG TABLET PO PRN (06:22)
[2017-03-21] MEDS: LEVOTHYROXINE SODIUM 25 MCG TABLET PO SCH (06:22)
[2017-03-21 07:51] VITALS: BP 122/64
[2017-03-21] MEDS: HEPARIN SODIUM,PORCINE 5,000 UNITS/ML VIAL SQ SCH ×3 (08:00→23:51)
[2017-03-21] MEDS: AmLODIPine BESYLATE 5 MG TABLET PO SCH (08:15)
[2017-03-21] MEDS: QUEtiapine FUMARATE 300 MG TABLET PO SCH ×2 (08:21→19:51)
[2017-03-21] MEDS: ASPIRIN 81 MG CHEWABLE TABLET PO SCH (08:21)
[2017-03-21] MEDS: CINACALCET HCL 30 MG TABLET PO SCH (08:21)
[2017-03-21] MEDS: PANTOPRAZOLE SODIUM 40 MG DR TABLET PO SCH (08:21)
[2017-03-21] MEDS: SEVELAMER CARBONATE 800 MG TABLET PO SCH ×3 (08:21→17:31)
[2017-03-21] MEDS: FERROUS SULFATE 325 MG EC TABLET PO SCH (08:22)
[2017-03-21] MEDS: DOCUSATE SODIUM 100 MG CAPSULE PO SCH ×2 (08:22→19:51)
[2017-03-21] MEDS: VITAMIN B COMP/VIT C/FOLIC ACID CAPSULE PO SCH (08:22)
[2017-03-21] MEDS ORDERED: SODIUM CHLORIDE 0.9% 2,000 ML IV ONE (08:29)
[2017-03-21] MEDS: HYDROCODONE/ACETAMINOPHEN 5-325 MG TABLET PO PRN (09:15)
[2017-03-21] MEDS ORDERED: LORazepam 2 MG/ML VIAL IVP ONE (09:45)
[2017-03-21] MEDS ORDERED: MANNITOL 25%-12.5 GM/50 ML VIAL IVP PRN (11:30)
[2017-03-21] MEDS ORDERED: ALBUMIN HUMAN 25%-12.5GM/50ML IV BOTTLE IV PRN (11:30)
[2017-03-21 13:36] VITALS: BP 148/82
[2017-03-21] MEDS: MUPIROCIN CALCIUM 2% 22 GM OINTMENT NASAL SCH (16:17)
[2017-03-21] MEDS ORDERED: DEXTROSE 50%-WATER 25 GM/50 ML SYRINGE IVP PRN (17:15)
[2017-03-21] MEDS: INSULIN ASPART 100 UNITS/ML SQ PRN ×2 (17:29→19:55)
[2017-03-21 17:42] LABS: GLUCOSE COMMENT 1 Received Meds; GLUCOSE,POINT OF CARE 213 MG/DL (70-110)
[2017-03-21] MEDS: PRAVASTATIN SODIUM 40 MG TABLET PO SCH (19:51)
[2017-03-21] MEDS: ZOLPIDEM TARTRATE 5 MG TABLET PO PRN (19:51)
[2017-03-21] MEDS: MIRTAZAPINE 30 MG TABLET PO SCH (19:51)
[2017-03-21 20:18] VITALS: BP 105/58
[2017-03-21 20:43] LABS: GLUCOSE COMMENT 1 Received Meds; GLUCOSE,POINT OF CARE 157 MG/DL (70-110)
[2017-03-21 23:53] VITALS: BP 123/74
[2017-03-22 04:08] VITALS: BP 130/68
[2017-03-22] MEDS: LEVOTHYROXINE SODIUM 25 MCG TABLET PO SCH (05:46)
[2017-03-22] MEDS: METOPROLOL TARTRATE 25 MG TABLET PO SCH ×4 (05:47→23:39)
[2017-03-22] MEDS: INSULIN ASPART 100 UNITS/ML SQ PRN ×3 (05:52→20:05)
[2017-03-22 06:23] LABS: GLUCOSE COMMENT 1 Received Meds; GLUCOSE,POINT OF CARE 207 MG/DL (70-110)
[2017-03-22 07:00] LABS: CALCIUM, TOTAL 8.4 mg/dL (8.8-10.5); CREATININE 4.24 mg/dL (0.60-1.30); POTASSIUM 4.2 mmol/L (3.5-5.1)
[2017-03-22 07:20] VITALS: BP 104/54
[2017-03-22] MEDS: AmLODIPine BESYLATE 5 MG TABLET PO SCH (09:00)
[2017-03-22] MEDS: MUPIROCIN CALCIUM 2% 22 GM OINTMENT NASAL SCH (09:00)
[2017-03-22] MEDS: CINACALCET HCL 30 MG TABLET PO SCH (09:01)
[2017-03-22] MEDS: HEPARIN SODIUM,PORCINE 5,000 UNITS/ML VIAL SQ SCH ×3 (09:02→23:39)
[2017-03-22] MEDS: DOCUSATE SODIUM 100 MG CAPSULE PO SCH ×2 (09:03→19:57)
[2017-03-22] MEDS: LORazepam 2 MG TABLET PO SCH (09:03)
[2017-03-22] MEDS: ASPIRIN 81 MG CHEWABLE TABLET PO SCH (09:03)
[2017-03-22] MEDS: PANTOPRAZOLE SODIUM 40 MG DR TABLET PO SCH (09:04)
[2017-03-22] MEDS: QUEtiapine FUMARATE 25 MG TABLET PO PRN ×2 (09:05→19:58)
[2017-03-22] MEDS: OLANZapine 10 MG TABLET PO SCH (09:06)
[2017-03-22] MEDS: QUEtiapine FUMARATE 300 MG TABLET PO SCH ×2 (09:07→21:00)
[2017-03-22] MEDS ORDERED: DiphenhydrAMINE HCL 50 MG/ML VIAL IVP ONE (12:00)
[2017-03-22 12:08] VITALS: BP 102/72
[2017-03-22] MEDS: SEVELAMER CARBONATE 800 MG TABLET PO SCH ×3 (12:19→18:44)
[2017-03-22] MEDS: FERROUS SULFATE 325 MG EC TABLET PO SCH (12:19)
[2017-03-22] MEDS: HYDROCODONE/ACETAMINOPHEN 5-325 MG TABLET PO PRN ×2 (12:21→18:45)
[2017-03-22 15:00] VITALS: BP 111/55
[2017-03-22 15:12] LABS: GLUCOSE,POINT OF CARE 129 MG/DL (70-110)
[2017-03-22] MEDS: VITAMIN B COMP/VIT C/FOLIC ACID CAPSULE PO SCH (17:27)
[2017-03-22 18:22] LABS: GLUCOSE,POINT OF CARE 180 MG/DL (70-110)
[2017-03-22] MEDS: PRAVASTATIN SODIUM 40 MG TABLET PO SCH (19:57)
[2017-03-22] MEDS: ZOLPIDEM TARTRATE 5 MG TABLET PO PRN (19:57)
[2017-03-22] MEDS: MIRTAZAPINE 30 MG TABLET PO SCH (19:58)
[2017-03-22 20:10] VITALS: BP 106/70
[2017-03-22 22:03] LABS: GLUCOSE COMMENT 1 Received Meds; GLUCOSE,POINT OF CARE 207 MG/DL (70-110)
[2017-03-23 01:08] VITALS: BP 104/68
[2017-03-23 03:30] VITALS: BP 124/74
[2017-03-23] MEDS: LEVOTHYROXINE SODIUM 25 MCG TABLET PO SCH (05:35)
[2017-03-23] MEDS: METOPROLOL TARTRATE 25 MG TABLET PO SCH ×3 (05:35→18:05)
[2017-03-23] MEDS: INSULIN ASPART 100 UNITS/ML SQ PRN ×2 (05:41→18:05)
[2017-03-23 06:12] LABS: GLUCOSE,POINT OF CARE 169 MG/DL (70-110)
[2017-03-23 07:28] VITALS: BP 106/56
[2017-03-23 07:48] LABS: CALCIUM, TOTAL 8.3 mg/dL (8.8-10.5); CREATININE 4.36 mg/dL (0.60-1.30); POTASSIUM 4.2 mmol/L (3.5-5.1)
[2017-03-23] MEDS: AmLODIPine BESYLATE 5 MG TABLET PO SCH ×2 (08:49→09:00)
[2017-03-23] MEDS: LORazepam 2 MG TABLET PO SCH (08:49)
[2017-03-23] MEDS: FERROUS SULFATE 325 MG EC TABLET PO SCH (08:51)
[2017-03-23] MEDS: DOCUSATE SODIUM 100 MG CAPSULE PO SCH (08:51)
[2017-03-23] MEDS: ASPIRIN 81 MG CHEWABLE TABLET PO SCH (08:52)
[2017-03-23] MEDS: HEPARIN SODIUM,PORCINE 5,000 UNITS/ML VIAL SQ SCH ×2 (08:52→16:00)
[2017-03-23] MEDS: PANTOPRAZOLE SODIUM 40 MG DR TABLET PO SCH (08:52)
[2017-03-23] MEDS: CINACALCET HCL 30 MG TABLET PO SCH (08:55)
[2017-03-23] MEDS: SEVELAMER CARBONATE 800 MG TABLET PO SCH ×3 (08:56→18:08)
[2017-03-23] MEDS: QUEtiapine FUMARATE 300 MG TABLET PO SCH (08:57)
[2017-03-23] MEDS: OLANZapine 10 MG TABLET PO SCH (08:57)
[2017-03-23] MEDS: MUPIROCIN CALCIUM 2% 22 GM OINTMENT NASAL SCH (09:12)
[2017-03-23] MEDS: VITAMIN B COMP/VIT C/FOLIC ACID CAPSULE PO SCH (09:13)
[2017-03-23 10:44] LABS: BASOPHILS % (AUTO) 0.3 % (0.0-2.0); EOSINOPHILS % (AUTO) 6.7 % (1.0-6.0); HEMATOCRIT 23.7 % (36-46); HEMOGLOBIN 7.7 g/dL (12.0-16.0); LYMPHOCYTES # (AUTO) 0.5 K/uL (1.0-4.8); LYMPHOCYTES % (AUTO) 11.3 % (22.0-44.0); MEAN CORPUSCULAR HEMOGLOBIN 32.3 pg (26.0-34.0); MEAN CORPUSCULAR HGB CONC 32.4 G/dL (31.0-37.0); MEAN CORPUSCULAR VOLUME 100 fL (80-100); MONOCYTES # (AUTO) 0.3 K/uL (0.1-1.0); MONOCYTES % (AUTO) 6.2 % (2.0-9.0); NEUTROPHILS # (AUTO) 3.4 K/uL (1.8-7.7); NEUTROPHILS % (AUTO) 75.5 % (40.0-70.0); PLATELET COUNT (AUTO) 175 K/uL (150-450); RED BLOOD CELL COUNT(AUTO) 2.38 MIL/uL (4.00-5.20); RED CELL DISTRIBUTION WIDTH 16.6 % (11.5-14.5); WHITE BLOOD COUNT (AUTO) 4.6 K/uL (4.5-11.0)
[2017-03-23 10:53] LABS: CALCIUM, TOTAL 8.1 mg/dL (8.8-10.5); CREATININE 3.57 mg/dL (0.60-1.30); POTASSIUM 4.2 mmol/L (3.5-5.1)
[2017-03-23 11:37] VITALS: BP 115/64
[2017-03-23 16:14] VITALS: BP 114/67
[2017-03-23] MEDS ORDERED: MIRT30 PO (17:33)
[2017-03-23] MEDS ORDERED: MUPI1OIN5 NASAL (17:37)
[2017-03-23 18:48] LABS: GLUCOSE COMMENT 1 Received Meds; GLUCOSE,POINT OF CARE 224 MG/DL (70-110)
[2017-03-23] MEDS ORDERED: FLUD25I SQ (18:54)
[2017-03-23] MEDS ORDERED: FLUD25I IM ×2 (18:54→18:57)
[2017-03-25] MEDS ORDERED: EPOETIN ALFA 10,000 UNITS/ML VIAL SQ SCH (09:00)
== END 2017-03-23 18:25 | DRG 640 ==
LOC: EMS 12:20 → 6N 18:20
PROVIDERS: ADMIT Internal Medicine; ATTEND Internal Medicine
PROC: 5A1D60Z (ICD-10-PCS; principal; 2017-03-19)
PROC: 3E0234Z Introduction of Serum, Toxoid and Vaccine into Muscle, Percutaneous Approach (ICD-10-PCS; 2017-03-20)
DX: E87.5 Hyperkalemia (principal); N18.6 End stage renal disease; I12.0 Hypertensive chronic kidney disease with stage 5 chronic kidney disease or end stage renal disease; F03.90 Unspecified dementia, unspecified severity, without behavioral disturbance, psychotic disturbance, mood disturbance, and anxiety; D64.9 Anemia, unspecified; F41.1 Generalized anxiety disorder; E03.9 Hypothyroidism, unspecified; Z99.2 Dependence on renal dialysis; F25.0 Schizoaffective disorder, bipolar type; E11.22 Type 2 diabetes mellitus with diabetic chronic kidney disease; F17.210 Nicotine dependence, cigarettes, uncomplicated; J44.9 Chronic obstructive pulmonary disease, unspecified; Z91.15 Patient's noncompliance with renal dialysis; Z88.1 Allergy status to other antibiotic agents; Z88.0 Allergy status to penicillin; Z79.82 Long term (current) use of aspirin; Z79.899 Other long term (current) drug therapy; Z91.19 Patient's noncompliance with other medical treatment and regimen; Z23 Encounter for immunization
CPT/HCPCS: 51702; 82962; 87081; 87340; 90935; 93005; 96372; 96374; 99285; J0610; J1200; J1630; J1644; J2060; J7030